=== PATIENT | male | born 1980 | race Caucasian/White ===

== ENCOUNTER → 2021-01-29 08:19 | Outpatient (CLI) | payer SELFPAY ==
[2021-01-20 13:26] VITALS: BMI 25.5
--- NOTE | 2021-01-29 08:24 | ECHOD_ITS ---
Reason For Study: MURMUR Procedure This was a 2D Doppler, Color Flow transthoracic echocardiogram. Exam performed in department. Left Ventricle Normal LV size. Left ventricular systolic function is normal. The estimated ejection fraction is 60 %. No regional wall motion abnormalities noted. Right Ventricle Normal RV size. Normal systolic function. Atria Normal left atrium. Normal right atrium. Mitral Valve Posterior leaflet diffuse mitral valve thickening. Posterior leaflet mitral valve prolapse. Moderately severe (3+) anteriorly directed mitral valve insufficiency. Tricuspid Valve Normal tricuspid valve. Aortic Valve Normal aortic valve. Trisinus/trileaflet aortic valve. Pulmonic Valve Normal pulmonic valve. Great Vessels Normal aortic root. The pulmonary artery is normal size. Normal inferior vena cava. Pericardium/Pleural No pericardial effusion. MMode/2D Measurements & Calculations LVIDd: 5.4 cm IVSd: 1.1 cm Ao root diam: 3.0 cm LVIDs: 3.1 cm LVPWd: 1.1 cm LA dimension: 3.2 cm RVDd: 4.0 cm FS: 43.1 % LAV(MOD-bp): 76.7 ml LA A4 area: 20.5 cm2 RA A4 area: 16.4 cm2 LAV(MOD-bp) Indexed: 39.3 ml/m2 LAV(MOD-sp2): 69.6 ml LAV(MOD-sp4): 69.7 ml Time Measurements MV dec time: 0.22 sec Doppler Measurements & Calculations MV E max joe: 127.4 cm/sec Lat Peak E' Joe: 18.1 cm/sec Med Peak E' Joe: 14.2 cm/sec MV A max joe: 51.3 cm/sec E/E' lat: 7.0 E/E' med: 9.0 MV E/A: 2.5 Ao V2 max: 110.2 cm/sec LV V1 max: 101.3 cm/sec PA V2 max: 80.6 cm/sec Ao max P.9 mmHg LV V1 max P.1 mmHg ECHO/Echo Complete Interpretation Summary Normal LV size. Left ventricular systolic function is normal. The estimated ejection fraction is 60 %. Posterior leaflet diffuse mitral valve thickening. Posterior leaflet mitral valve prolapse. Moderately severe (3+) anteriorly directed mitral valve insufficiency. Ordering Physician: Jose Woo Referring Physician: Francis Maloney Performed By: Yasmin Tomlinson, RDCS, RVT
== END ==
PROVIDERS: PCP Family Medicine; Referring Provider Internal Medicine Cardiovascular Disease; Visit Provider Internal Medicine Cardiovascular Disease
DX: R01.1 Cardiac murmur, unspecified (principal)
CPT/HCPCS: 93306

== ENCOUNTER 2021-03-01 08:02 | Day surgery (SDC) | payer SELFPAY, OTHER ==
[2021-01-20 13:26] VITALS: BMI 25.5
--- NOTE | 2021-02-10 08:20 | RAD_ITS ---
STUDY: X-RAY CHEST REASON FOR EXAM: Male, 40 years old. Dyspnea on exertion. Abnormal echo. TECHNIQUE: Frontal and lateral views of the chest. COMPARISON: None. FINDINGS: The lungs are clear and expanded. There is no demonstrated pleural abnormality. Normal size heart. Normal mediastinum and ileana. Normal visualized pulmonary arteries. Normal visualized aortic arch and descending thoracic aorta. Normal visualized thoracic spine. Normal visualized ribs, clavicles, and shoulders. There is no demonstrated abnormality of the visualized soft tissue structures of the upper abdomen. RAD/Chest PA and Lateral IMPRESSION: Normal x-ray examination of the chest. Electronically Signed: Darrin Rivera MD at 12:47 EDT , Service support ,
[2021-02-10 08:44] LABS: Absolute Neutrophil Count 2.5 X10^3/uL (2.0-7.7); Basophil# 0.03 X10^3/uL; Basophil% 0.6 % (0-1); Eosinophil# 0.37 X10^3/uL; Eosinophils% 7.1 % (0-5); Hematocrit 47.7 % (40-54); Hemoglobin 15.5 g/dL (13.0-16.5); Lymphocyte % 36.4 % (19-41); Mean Corp Hgb Conc 32.5 g/dL (32-36); Mean Corpuscular Hgb 27.9 pg (27.0-32.0); Mean Corpuscular Volume 85.9 fL (80-94); Monocyte# 0.41 X10^3/uL; Monocyte% 7.9 % (0-10); NRBC Flagged by Analyzer 0 % (0-5); Neutrophil # 2.51 X10^3/uL (2.7-7.7); Platelet Count 198 K/mm3 (150-450); RBC Distribution Width CV 12.4 % (11.6-14.6); RBC Distribution Width SD 39.2 fl (35.1-43.9); Red Blood Count 5.55 M/mm3 (4.6-6.2); White Blood Count 5.2 K/mm3 (4.4-11.0)
[2021-02-10 09:18] LABS: Anion Gap 4 (5-15); BUN 20 mg/dL (7-18); BUN/Creat Ratio 23.1 RATIO (10-20); Calcium,Total 9.5 mg/dL (8.5-10.1); Chloride 104 mmol/L (98-107); Creatinine, Serum 0.86 mg/dL (0.70-1.30); EST Glomerular Filtration Rate 104 mL/min (>60); Est Glom Filt Rate - Afr Amer 125 mL/min (>60); Glucose 65 mg/dL (74-106); Potassium 3.9 mmol/L (3.5-5.1); Sodium Level 139 mmol/L (136-145)
[2021-02-26 09:17] VITALS: BMI 25.5
--- NOTE | 2021-03-01 10:50 | CL.D_ITS ---
Patient Name: MG STUBBS Study Date: 03/01/2021 Performing: Jose Woo MD Ht: 74 inches 188 cm : 1980 Wt: 198.7 lbs 90 kg Age: 41 Gender: male BSA: 2.17 PROCEDURE(S) PERFORMED [id number] CLINICAL PROFILE AND INDICATIONS Indications: Valvular Disease Heart Failure: None Stress/Imaging Stress/Image Study Performed: No Angina Classification Anginal Classification w/in 2 Weeks: No symptoms CAD Presentations: No Sxs, no angina. CONCLUSIONS Normal coronary arteries Mitral Valve Insufficiency Severe Mitral Valve Prolapse Moderate RECOMMENDATIONS Surgery consult for valvular disease DESCRIPTION OF PROCEDURE The patient arrived to the procedure lab. The risks and benefits of the procedure as well as a full d escription of our services here and current unavailability of surgical backup were fully explained to the patient and/or their significant other prior to the catheterization. The Timeout was completed, verifying the correct patient and procedure. The patient's procedural site was prepped and draped in the usual fashion. Local anesthetic was given subcutaneously to right radial region with Lidocaine 2% . Using a modified Seldinger technique, arterial access was obtained via the right radial artery, a 6 Fr sheath was inserted. Right Coronary Artery selective angiography was then performed in multiple v iews using a 5 Fr. 4.0 [place] catheter. Left Coronary Artery selective angiography was performed in mu ltiple views using a 5 Fr. 4.0 [place] catheter. Left Ventriculography was performed in RICHARDS projection using a 5 Fr. Pigtail catheter. LV to AO pullback pressures were then recorded.The arterial sheath was pulled and a TR Band was applied for hemostasis CORONARY ANGIOGRAPHY DOMINANCE: Right Dominant LEFT HEART ASSESSMENT Left Ventricular Ejection Fraction: by LV Gram 60 % Normal LV wall motion Normal Left Ventricular systolic function LEFT MAIN: Angiographically normal LEFT ANTERIOR DESCENDING ARTERY: Angiographically normal CIRCUMFLEX ARTERY: Angiographically normal RIGHT CORONARY ARTERY: Angiographically normal VALVE FINDINGS: Mitral Valve Insufficiency - Grade 3 Mitral Valve Prolapse Moderate COMPLICATIONS No Complications PROCEDURE MEDICATIONS Versed 1 mg IV Fentanyl 50 mcg IV Versed 1 mg IV Oxygen: 2 L/min via nasal cannula SUMMARY OF HEMODYNAMIC DATA Time AIR REST ECG 08:49:22 AO 147/67 (88) SA 10:09:03 LV 116/14, 20 10:36:52 LV 107/15, 22 10:37:17 LV 105/19, 23 10:37:55 LVp 107/22, 32 10:38:05 AOp 111/72 (91) 10:38:11 AO 108/73 (90) 10:38:13 10:45:26 Signed By Jose Woo MD On 03/01/2021 10:49:29 AM Jose Woo MD
== END 2021-03-01 12:50 | disposition home or self-care (01) ==
LOC: CLSP 08:04
PROVIDERS: PCP Family Medicine; Referring Provider Internal Medicine Cardiovascular Disease; Visit Provider Internal Medicine Cardiovascular Disease
DX: I34.1 Nonrheumatic mitral (valve) prolapse (principal); I34.0 Nonrheumatic mitral (valve) insufficiency; R01.1 Cardiac murmur, unspecified; Z87.891 Personal history of nicotine dependence
CPT/HCPCS: 36415; 71046; 80048; 85025; 93458; 99152; 99153; J7040; Q9967; C1769; C1894

== ENCOUNTER → 2021-05-28 10:47 | Outpatient (CLI) | payer SELFPAY ==
[2021-05-28 11:30] LABS: Absolute Lymphocyte Count 1.69 X10^3/uL (0.83-4.51); Absolute Neutrophil Count 2.6 X10^3/uL (2.0-7.7); Basophil# 0.04 X10^3/uL; Basophil% 0.8 % (0-1); Eosinophil# 0.22 X10^3/uL; Eosinophils% 4.4 % (0-5); Hematocrit 42.9 % (40-54); Hemoglobin 13.9 g/dL (13.0-16.5); Lymphocyte # 1.69 X10^3/ul (0.83-4.51); Lymphocyte % 33.5 % (19-41); Mean Corp Hgb Conc 32.4 g/dL (32-36); Mean Corpuscular Hgb 28.1 pg (27.0-32.0); Mean Corpuscular Volume 86.7 fL (80-94); Mean Platelet Vol. 9.3 fl (6.2-12.0); Monocyte# 0.44 X10^3/uL; Monocyte% 8.7 % (0-10); NRBC Flagged by Analyzer 0 % (0-5); Neutrophil # 2.63 X10^3/uL (2.7-7.7); Platelet Count 228 K/mm3 (150-450); RBC Distribution Width CV 12.4 % (11.6-14.6); RBC Distribution Width SD 39.8 fl (35.1-43.9); Red Blood Count 4.95 M/mm3 (4.6-6.2); White Blood Count 5.1 K/mm3 (4.4-11.0)
[2021-05-28 11:52] LABS: Anion Gap 3 (5-15); BUN 16 mg/dL (7-18); BUN/Creat Ratio 16.6 RATIO (10-20); Calcium,Total 9.4 mg/dL (8.5-10.1); Chloride 105 mmol/L (98-107); Creatinine, Serum 0.96 mg/dL (0.70-1.30); EST Glomerular Filtration Rate 91 mL/min (>60); Est Glom Filt Rate - Afr Amer 110 mL/min (>60); Glucose 97 mg/dL (74-106); Potassium 4.7 mmol/L (3.5-5.1); Sodium Level 137 mmol/L (136-145)
== END ==
PROVIDERS: PCP Family Medicine; Referring Provider Nurse Practitioner Gerontology; Visit Provider Nurse Practitioner Gerontology
DX: R53.83 Other fatigue (principal)
CPT/HCPCS: 36415; 80048; 85025

== ENCOUNTER → 2021-06-11 09:12 | Outpatient (CLI) | payer SELFPAY ==
--- NOTE | 2021-06-11 09:18 | ECHOD_ITS ---
Reason For Study: s/p MV Repair Procedure This was a 2D Doppler, Color Flow transthoracic echocardiogram. Exam performed in department. Left Ventricle Normal LV size. Left ventricular systolic function is normal. The estimated ejection fraction is 60 %. Diastolic function is indeterminate. No regional wall motion abnormalities noted. Right Ventricle Normal RV size. Normal systolic function. Atria Normal left atrium. Normal right atrium. Mitral Valve Status post mitral valve repair. Tricuspid Valve Normal tricuspid valve. Aortic Valve Normal aortic valve. Trisinus/trileaflet aortic valve. Pulmonic Valve Normal pulmonic valve. Great Vessels Normal aortic root. The pulmonary artery is normal size. Normal inferior vena cava. Pericardium/Pleural No pericardial effusion. MMode/2D Measurements & Calculations LVIDd: 4.2 cm IVSd: 1.1 cm LA dimension: 4.1 cm LVIDs: 2.9 cm LVPWd: 1.1 cm RVDd: 4.0 cm FS: 31.4 % LAV(MOD-bp): 51.6 ml LA A4 area: 18.7 cm2 RA A4 area: 13.4 cm2 LAV(MOD-bp) Indexed: 23.7 ml/m2 LAV(MOD-sp2): 47.0 ml LAV(MOD-sp4): 52.1 ml Time Measurements MV dec time: 0.41 sec Doppler Measurements & Calculations MV E max joe: 191.0 cm/sec Lat Peak E' Joe: 11.1 cm/sec Med Peak E' Joe: 8.4 cm/sec MV A max joe: 30.0 cm/sec E/E' lat: 17.2 E/E' med: 22.8 MV E/A: 6.4 MV V2 max: 213.3 cm/sec MV P1/2t max joe: 213.3 cm/sec Ao V2 max: 121.3 cm/sec MV max P.2 mmHg MV P1/2t: 126.0 msec Ao max P.9 mmHg MV V2 mean: 96.8 cm/sec MV dec slope: 495.8 cm/sec2 MV mean P.1 mmHg MVA(P1/2t): 1.7 cm2 MV V2 VTI: 66.7 cm LV V1 max: 86.2 cm/sec PA V2 max: 72.2 cm/sec LV V1 max P.0 mmHg ECHO/Echo Complete Interpretation Summary Status post mitral valve repair. Normal LV size. Left ventricular systolic function is normal. The estimated ejection fraction is 60 %. Diastolic function is indeterminate. Ordering Physician: Ariana Lee Referring Physician: Francis Maloney Performed By: Quincy Lundberg RCS
== END ==
PROVIDERS: PCP Family Medicine; Referring Provider Nurse Practitioner Gerontology; Visit Provider Nurse Practitioner Gerontology
DX: Z98.890 Other specified postprocedural states (principal)
CPT/HCPCS: 93306

== ENCOUNTER → 2022-03-15 | Outpatient (CLI) | payer OTHER, SELFPAY ==
[2022-03-15 17:06] LABS: Absolute Lymphocyte Count 1.46 X10^3/uL (0.83-4.51); Absolute Neutrophil Count 2.3 X10^3/uL (2.0-7.7); Basophil# 0.02 X10^3/uL; Basophil% 0.4 % (0-1); Eosinophils% 4.4 % (0-5); Hemoglobin 13.4 g/dL (13.0-16.5); Lymphocyte # 1.46 X10^3/ul (0.83-4.51); Lymphocyte % 31.8 % (19-41); Mean Corp Hgb Conc 32.7 g/dL (32-36); Mean Corpuscular Volume 82.7 fL (80-94); Mean Platelet Vol. 9.3 fl (6.2-12.0); Monocyte# 0.62 X10^3/uL; Monocyte% 13.5 % (0-10); NRBC Flagged by Analyzer 0 % (0-5); Neutrophil # 2.28 X10^3/uL (2.7-7.7); Neutrophil % 49.7 % (47-70); Platelet Count 215 K/mm3 (150-450); RBC Distribution Width CV 12.6 % (11.6-14.6); RBC Distribution Width SD 37.7 fl (35.1-43.9); Red Blood Count 4.96 M/mm3 (4.6-6.2); White Blood Count 4.6 K/mm3 (4.4-11.0)
[2022-03-15 17:37] LABS: Anion Gap 7 (5-15); BUN 16 mg/dL (7-18); BUN/Creat Ratio 20.7 RATIO (10-20); Calcium,Total 8.9 mg/dL (8.5-10.1); Chloride 104 mmol/L (98-107); Creatinine, Serum 0.77 mg/dL (0.70-1.30); EST Glomerular Filtration Rate 117 mL/min (>60); Est Glom Filt Rate - Afr Amer 142 mL/min (>60); Glucose 114 mg/dL (74-106); Sodium Level 140 mmol/L (136-145)
== END | disposition home or self-care (01) ==
LOC: CVS 15:29
PROVIDERS: PCP Family Medicine; Referring Provider Nurse Practitioner Gerontology; Visit Provider Nurse Practitioner Gerontology
DX: R53.83 Other fatigue (principal)
CPT/HCPCS: 36415; 80048; 85025

== ENCOUNTER → 2022-04-01 | Outpatient (CLI) | payer SELFPAY, OTHER ==
--- NOTE | 2022-04-01 08:24 | ECHOD_ITS ---
Reason For Study: Valve Replacement Eval Procedure This was a 2D Doppler, Color Flow transthoracic echocardiogram. Exam performed in department. Left Ventricle Normal LV size. Left ventricular systolic function is normal. The estimated ejection fraction is 60 %. No regional wall motion abnormalities noted. Right Ventricle Normal RV size. Normal systolic function. Atria Normal left atrium. Normal right atrium. Mitral Valve Status post mitral valve repair with annuloplasty ring. Tricuspid Valve Normal tricuspid valve. Aortic Valve Trisinus/trileaflet aortic valve. Pulmonic Valve Normal pulmonic valve. Great Vessels Normal aortic root. The pulmonary artery is normal size. Normal inferior vena cava. Pericardium/Pleural No pericardial effusion. MMode/2D Measurements & Calculations LVIDd: 4.3 cm IVSd: 1.1 cm Ao root diam: 3.2 cm LVIDs: 3.2 cm LVPWd: 1.1 cm RVDd: 3.7 cm FS: 26.9 % LAV(MOD-bp): 55.6 ml LVAd ap4: 28.6 cm2 SV(MOD-sp4): 47.4 ml LAV(MOD-bp) Indexed: 25.9 ml/m2 LVLd ap4: 8.6 cm LAV(MOD-sp2): 57.2 ml EDV(MOD-sp4): 79.4 ml LAV(MOD-sp4): 50.7 ml EDV(sp4-el): 81.3 ml LVAs ap4: 16.6 cm2 LVLs ap4: 7.4 cm ESV(MOD-sp4): 32.1 ml ESV(sp4-el): 31.4 ml EF(MOD-sp4): 59.6 % EF(sp4-el): 61.4 % SV(sp4-el): 49.9 ml LA A4 area: 19.1 cm2 LA dimension(2D): 4.5 cm RA A4 area: 15.6 cm2 Time Measurements MV dec time: 0.38 sec Doppler Measurements & Calculations MV E max joe: 173.4 cm/sec Lat Peak E' Joe: 5.5 cm/sec Med Peak E' Joe: 5.3 cm/sec MV A max joe: 47.3 cm/sec E/E' lat: 31.6 E/E' med: 32.9 MV E/A: 3.7 MV V2 max: 234.5 cm/sec MV P1/2t max joe: 215.3 cm/sec Ao V2 max: 125.6 cm/sec MV max P.1 mmHg MV P1/2t: 112.8 msec Ao max P.3 mmHg MV V2 mean: 114.7 cm/sec Ao V2 mean: 91.6 cm/sec MV mean P.8 mmHg MV dec slope: 559.0 cm/sec2 Ao mean P.6 mmHg MV V2 VTI: 60.8 cm MVA(P1/2t): 2.0 cm2 Ao V2 VTI: 26.3 cm LV V1 max: 110.9 cm/sec PA V2 max: 67.3 cm/sec PI end-d joe: 115.3 cm/sec LV V1 max P.9 mmHg TR max joe: 267.7 cm/sec TR max P.7 mmHg ECHO/Echo Complete Interpretation Summary Status post mitral valve repair with annuloplasty ring. Normal LV size. Left ventricular systolic function is normal. The estimated ejection fraction is 60 %. Ordering Physician: Ariana Lee Referring Physician: Francis Maloney Performed By: Kelley Persaud RDCS, RVT
== END | disposition home or self-care (01) ==
PROVIDERS: PCP Family Medicine; Referring Provider Nurse Practitioner Gerontology; Visit Provider Nurse Practitioner Gerontology
DX: Z95.2 Presence of prosthetic heart valve (principal)
CPT/HCPCS: 93306